=== PATIENT | male | born 1940 | race Caucasian/White ===

== ENCOUNTER 2017-01-16 10:38 | Day surgery (SDC) | payer MEDICARE ==
[~2017-01-16 10:38] MED LIST: Buffered Lidocaine 1% SYRIN* 3 ML/SYR SYRINGE INTRADERM ONE; Famotidine IV* 10 MG/ML 2 ML (20 mg) IV ONE; Famotidine IV* 10 MG/ML 2 ML (20 mg) ONE; Metoclopramide TAB* 10 MG ONE; Metoclopramide TAB* 10 MG PO ONE
[2017-01-16] MEDS ORDERED: Dexamethasone IV* 4 MG/ML 1 ML (4 MG) ONE (11:33)
[2017-01-16] MEDS ORDERED: fentaNYL* 50 MCG/ML 2 ML VIAL (100 MCG VIAL) ONE ×2 (11:33→14:48)
[2017-01-16] MEDS ORDERED: Oxymetazoline 0.05% NASAL SPR* 15 ML BTL ONE (11:33)
[2017-01-16] MEDS ORDERED: Lidocaine 4% TOPICAL* 50 ML TOP.SOLN ONE (11:33)
[2017-01-16] MEDS ORDERED: Propofol* 10 MG/ML 20 ML BTL IV PUSH ONE (11:33)
[2017-01-16] MEDS ORDERED: Ondansetron INJ* 2 MG/ML VIAL ONE (11:33)
[2017-01-16] MEDS ORDERED: Midazolam* 1 MG/ML 5 ML VIAL (5 MG) ONE (11:33)
[2017-01-16] MEDS ORDERED: Lidocaine 2% PF * 5 ML VIAL ONE (11:33)
[2017-01-16] MEDS ORDERED: KETAMINE HCL* 50 MG/ML 10 ML VIAL ONE (11:33)
[2017-01-16] MEDS ORDERED: Lidocain 1% EPI 1:100,000 * 30 ML MDV ONE (11:34)
[2017-01-16] MEDS ORDERED: EPHEDrine (Pressors)* 50 MG/ML VIAL ONE (12:32)
[2017-01-16] MEDS ORDERED: fentaNYL* 50 MCG/ML 2 ML VIAL (100 MCG VIAL) IV PRN (13:21)
[2017-01-16] MEDS ORDERED: Levalbuterol 0.63MG/3ML NEB INH PRN (13:21)
[2017-01-16] MEDS ORDERED: HYDROcodone/ACET. 7.5/325 LIQ* 15 ML UDC ONE (13:52)
[2017-01-16 15:14] VITALS: BP 162/72
--- NOTE | 2017-01-16 22:55 | OP ---
DATE OF OPERATION: 01/16/17 [facility] DATE OF : 40 SURGEON: Bartolo Mott MD ANESTHESIOLOGIST: Issa Chavez MD ANESTHESIA: General PRE-OP DIAGNOSES: Right ethmoidal, left sphenoidal sinusitis. There was ethmoidal sinusitis as well on the left side and inferior turbinate hypertrophy. POST-OP DIAGNOSES: Right ethmoidal, left sphenoidal sinusitis. There was ethmoidal sinusitis as well on the left side and inferior turbinate hypertrophy. OPERATIVE PROCEDURE: Endoscopic sinus surgery using the image-guided system. On the right, it was a right total ethmoidectomy. On the left, ethmoidectomy with sphenoidotomy and then inferior turbinate reduction using the debrider bilaterally. SPECIMEN: Cultures were taken intraoperatively at the right ethmoid with pus. ESTIMATED BLOOD LOSS: Minimal. COMPLICATIONS: None. DISPOSITION: Good. DESCRIPTION OF PROCEDURE: The patient was taken to the operating room, placed in the supine position on the operating table, general anesthesia was induced and was maintained with laryngeal mask airway anesthesia. He was first registered to the image-guided system and his nose was packed bilaterally with cottonoids impregnated with oxymetazoline and 4% lidocaine and draped for the surgery. Under endoscopic guidance, I injected the middle turbinates with 1% lidocaine with 1:100,000 epinephrine. Medialized these into the lateral wall and the anterior ethmoid bulla. I confirmed that I was in the right spot with the registered probe and suctioned and opened up into the ethmoid bulla and cleaned out both the anterior and posterior ethmoids on the right side. When I opened, there was copious pus that came out and I did send this for both for culture, C and S routine, and anaerobic. On the left, I went through the ethmoid to get to the plaque sphenoid, again found pus. Opened up the ostium of the sphenoid sinus and cleaned that out. Then, inferior turbinates reduction was performed. They were injected with 1% lidocaine with 1:100,000 epinephrine. A 15-blade was used to make an incision on the anterior inferior turbinates. The caudal elevator was used to raise the submucosal pocket elevating the mucosa off with the bone and turbinate debrider was used to debride the submucosa bilaterally. Stammberger Sinu-Foam was placed in the ostiomeatal units bilaterally. The patient tolerated this procedure well, no complications , and transferred to the recovery room in stable condition. [id number]/[facility] #: [id number] [place]
== END 2017-01-16 15:14 | disposition home or self-care (01) ==
LOC: OR 10:38
PROVIDERS: ATTEND Otolaryngology
DX: J32.2 Chronic ethmoidal sinusitis (principal); J32.3 Chronic sphenoidal sinusitis; J34.3 Hypertrophy of nasal turbinates; I10 Essential (primary) hypertension; I25.10 Atherosclerotic heart disease of native coronary artery without angina pectoris; G47.33 Obstructive sleep apnea (adult) (pediatric); Z95.5 Presence of coronary angioplasty implant and graft; Z87.891 Personal history of nicotine dependence; E11.9 Type 2 diabetes mellitus without complications
CPT/HCPCS: 87070; 87073; 87077; 87186; 87205; A9270-GY; J1100; J2250; J2405; J2704; J3010

== ENCOUNTER 2019-11-09 15:59 | Emergency (ER) | payer MEDICARE ==
[2019-11-09 16:11] VITALS: BP 182/80
[2019-11-09 16:31] LABS: Influenza A Molecular Negative (Negative); Influenza B Molecular Negative (Negative)
--- NOTE | 2019-11-09 17:33 | UC ---
Respiratory Complaint HPI - HPI Summary HPI Summary: 78 yo with hx of chronic cough x 2 years, with sudden increase in cough x 2 days , without fever. He has bilateral anterior chest discomfort from coughing. Went for evaluation at ENT, and [employer] there advised coming here to screen for influenza, which is negative. PMH includes recent GI bleed with anemia thought secondary to NSAID's, and hx of CAD with past stenting. Has used inhalrs in the past with side effects and without clear efficacy - History of Current Complaint Chief Complaint: UCRespiratory Stated Complaint: RESP COMPLAINT Time Seen by Provider: 11/09/19 17:18 Hx Obtained From: Patient, Family/Box Maker - here with his Onset/Duration: Sudden Onset, Lasting Days, Worse Since - 2 days Timing: Intermittent Episodes Severity Initially: Moderate Severity Currently: Moderate Pain Intensity: 0 Character: Cough: Nonproductive Aggravating Factors: Exertion Alleviating Factors: Nothing Associated Signs And Symptoms: Positive: Nasal Congestion. Negative: Fever, Chills - Risk Factors Pulmonary Embolism Risk Factors: Negative Cardiac Risk Factors: Negative Pseudomonas Risk Factors: Negative Tuberculosis Risk Factors: Negative - Allergies/Home Medications Allergies/Adverse Reactions: Allergies Allergy/AdvReac Type Severity Reaction Status Date / Time erythromycin base Allergy Diarrhea Verified 11/09/19 16:25 MS Erythromycin Allergy Diarrhea Verified 11/09/19 16:25 [Erythromycin] contrast dye Allergy Rash Uncoded 11/09/19 16:25 eryhtromcyin Allergy Diarrhea Uncoded 11/09/19 16:25 OXCONTIN Allergy Unknown Uncoded 11/09/19 16:25 Reaction Details OYCODONE Allergy Unknown Uncoded 11/09/19 16:25 Reaction Details SEASONAL Allergy Congestion Uncoded 11/09/19 16:25 Home Medications: Home Medications Aspirin [Aspirin Adult Low Dose] 81 mg PO DAILY 07/18/13 [History Confirmed ] Simvastatin [Zocor 40 MG (NF)] 20 mg PO QPM 07/18/13 [History Confirmed 11/09/19 ] HYDROcodone/ACETAMIN 5-325 MG* [[place]oda 5-325 TAB*] 1 tab PO Q8H PRN 04/10/16 [ History Confirmed 11/09/19] Propranolol 40 mg TAB [Inderal TAB*] 40 mg PO BID 04/10/16 [History Confirmed ] Ipratropium Br (Nf)0.03% Nasal [Ipratropium Acton] 1 spr BOTH NARES SEE INSTRUCTIONS PRN 01/09/17 [History Confirmed 11/09/19] Azelastine 0.1% Nasal (NF) [Astepro 0.1% Nasal (NF)] 1 spray BOTH NARES BID [History Confirmed 11/09/19] Cetirizine* [ZyrTEC 10 MG TAB*] 10 mg PO DAILY 10/07/19 [History Confirmed 11/09] Losartan Potassium 100 mg PO DAILY 10/07/19 [History Confirmed 11/09/19] Meclizine TAB* [Antivert 12.5 TAB*] 25 mg PO TID 10/07/19 [History Confirmed ] Melatonin 3 mg PO DAILY 10/07/19 [History Confirmed 11/09/19] Mupirocin 2% OINT* [Bactroban 2 % Oint*] 1 applic TOPICAL BID 10/07/19 [History Confirmed 11/09/19] Cholecalciferol TAB* [Vitamin D TAB*] 4,000 unit PO DAILY 11/09/19 [History Confirmed 11/09/19] Codeine Phosphate/Guaifenesin [Guaifen-Codeine 100-10 mg/5 ml] 10 ml PO QID PRN #200 ml MDD 40ml 11/09/19 [Rx] Omeprazole CAP(NF) [PriLOSEC CAP(NF)] 10 mg PO DAILY 11/09/19 [History Confirmed 11/09/19] PMH/Surg Hx/FS Hx/Imm Hx - Additional Past Medical History Additional PMH: hx of sinusitis, with past hx of orbital cellulitis Endocrine History: Dyslipidemia Cardiovascular History: Cardiac Disease, Hypertension GI/ History: Gastroesophageal Reflux, Ulcer, Gastrointestional Bleed Neurological History: Other - essential tremor - Surgical History Surgical History: Yes Surgery Procedure, Year, and Place: BLADDER SURGERY 2014, CATARACTS 2002, KIDNEY STONES REMOVED,. RETINAL SURGERY IN 2010 AND IN 2014 BOTH IN [place], RUPTURED COLON AND COLOSTOMY PLACED 2005 REVERSED 2006, TONSILS 1944?, [place]ARDIAC ST[place] [place] VERIFLEX (BARE METAL)700G CM-NORMAL OPERATING MODE-OK FOR 1.5 OR 3T, PROSTATE REMOVED 11/26/2015 - Social History Occupation: Retired Lives: With Family Alcohol Use: Occasionally Alcohol Amount: winter 1-2 drinks 3-4 x week, summer- rarely Substance Use Type: None Smoking Status (MU): Former Smoker Amount Used/How Often: smoked for 30 yrs, 1 ppd When Did the Patient Quit Smoking/Using Tobacco: quit Review of Systems All Other Systems Reviewed And Are Negative: Yes Constitutional: Positive: Fatigue Skin: Positive: Negative Eyes: Positive: Negative ENT: Positive: Negative Respiratory: Positive: Cough Cardiovascular: Positive: Chest Pain - related to coughint., Other - hx of stent Gastrointestinal: Positive: Other - recent dx of ulcer Genitourinary: Positive: Negative Motor: Positive: Negative Neurovascular: Positive: Negative Musculoskeletal: Positive: Negative Neurological/Mental Status: Positive: Negative Psychological: Positive: Negative Is Patient Immunocompromised?: No Physical Exam Triage Information Reviewed: Yes Appearance: Well-Appearing, Pain Distress - mid Vital Signs: Initial Vital Signs Temp 98.3 F 11/09/19 16:07 Pulse 67 11/09/19 16:07 Resp 18 11/09/19 16:07 BP 182/80 11/09/19 16:07 Pulse Ox 97 11/09/19 16:07 Eyes: Positive: Conjunctiva Clear ENT: Positive: Pharynx normal, TMs normal Neck: Positive: Supple, Nontender, No Lymphadenopathy Respiratory: Positive: Lungs clear, Normal breath sounds Cardiovascular: Positive: RRR, No Murmur, Pulses Normal Abdomen Description: Positive: Nontender, No Organomegaly, Soft Musculoskeletal Exam: Normal Neurological Exam: Normal Psychological Exam: Normal Skin Exam: Normal Diagnostics - Laboratory Lab Results: rapid flu negative - Radiology No standard instances Radiology Interpretation Completed By: Radiologist - Patient Name: EUGENIO MCGUIRE Medical Record#: [id number] Ordering Physician: Dana Art MD Acct.#: [id number] : 1940 Age: 78 Sex: M [facility] Exam Date: 11/09/191730 ADM Status: REG ER Order Information: CHEST PA & LAT 2 VWS Accession Number: [id number] CPT: 30881 INDICATION: Chronic cough with interval worsening in the last few days. Former tobacco use. COMPARISON: April 26, 2018 CT. TECHNIQUE: Dual energy PA and lateral views of the chest obtained. REPORT: Elevated lung volumes and both diffuse mild prominence of the interstitial markings and patchy rarefaction of interstitial markings. Small calcified granuloma at the RIGHT lung base. The lungs and pleural spaces are otherwise clear without evidence for alveolar consolidation, suspicious focal pulmonary lesions, or pleural effusions. The heart, pulmonary vasculature, and mediastinal contours are unremarkable. IMPRESSION: #. Stigmata of obstructive lung disease. No acute pulmonary or cardiac process evident. <Electronically signed by Joseph Medel MD in OV> 11/09/191750 Dictated By: Joseph Medel MD Dictated Date/ Time: 11/09/191748 Transcribed Date/Time: 11/09/191748 Copy to: CC:Dana Art MD; Eugenio Pat MD Imaging - [facility] Urgent [facility] [place] [address] [address] ph ([phone]) ph ([phone]) ph ([phone]) This report is only to be considered final once signed by the Provider(s) as displayed in the "< Electronically Signed by >" field (s). Absence of a signature indicates the report is in a draft status and still needs to be finalized. In the event this document was created by someone other than the signing Provider, the individual initiating the document will be listed in the "Entered by:" or "Dictated by:" brown. 1 of 1 Respiratory Course/Dx - Course Course Of Treatment: Discussed likely viral, he would like a codeine cough suppressant. Tessalong perles have been ineffective. Discussed follow up in ER if he has worsening shorntenss of breath, follow up with PMD in 2 days to reassess. Reviewed [facility] site, last rx for hydrocodone was one month ago; use is irregular and is used for chronic pain. - Differential Dx/Diagnosis Differential Diagnosis/HQI/PQRI: Asthma, Influenza, Lower Resp Infection Provider Diagnosis: Bronchitis Discharge ED - Sign-Out/Discharge Documenting (check all that apply): Patient Departure All imaging exams completed and their final reports reviewed: Yes - Discharge Plan Condition: Stable Disposition: HOME Prescriptions: Codeine Phosphate/Guaifenesin [Guaifen-Codeine 100-10 mg/5 ml] 10 ml PO QID PRN #200 ml MDD 40ml PRN Reason: Cough Patient Education Materials: Acute Bronchitis (ED) Referrals: Eugenio Pat MD [Primary Care Provider] - Additional Instructions: You have symptoms suggesting a viral infection, and chest xray does not show a pneumonia. You have a prescription for a codeine cough suppressant because other suppressants have not been found effective. Please do not use hydrocodone during at the same time as the suppressant. Follow up with Dr. Pat in 2 days for re-evaluation, but also ensure that you proceed to the emergency room if you have worsenng cough or shortness of breath. - Billing Disposition and Condition Condition: STABLE Disposition: Home
== END 2019-11-09 18:40 | disposition home or self-care (01) ==
LOC: UCEAST 15:59
DX: J40 Bronchitis, not specified as acute or chronic (principal); I25.10 Atherosclerotic heart disease of native coronary artery without angina pectoris; E78.5 Hyperlipidemia, unspecified; R09.81 Nasal congestion; K21.9 Gastro-esophageal reflux disease without esophagitis; Z95.5 Presence of coronary angioplasty implant and graft; Z88.1 Allergy status to other antibiotic agents; Z91.041 Radiographic dye allergy status; Z88.5 Allergy status to narcotic agent; Z91.09 Other allergy status, other than to drugs and biological substances; Z79.82 Long term (current) use of aspirin; Z79.899 Other long term (current) drug therapy; Z87.891 Personal history of nicotine dependence
CPT/HCPCS: 71046; 99212; G0463

== ENCOUNTER 2021-04-05 21:30 | Inpatient (IN) ==
[2021-04-05 23:33] LABS: ABS Eosinophils 0.4 10^3/ul (0-0.6); ABS Lymphocytes 0.4 10^3/ul (1.0-4.8); ABS Monocytes 0.9 10^3/ul (0-0.8); ABS Neutrophils 6.2 10^3/ul (1.5-7.7); Eosinophil % 5.5 %; Hematocrit 37 % (42-52); Hemoglobin 12.7 g/dL (14.0-18.0); Lymphocyte % 5.1 %; Mean Corpuscular HGB Conc 35 g/dL (31-36); Mean Corpuscular Hemoglobin 31 pg (27-31); Mean Corpuscular Volume 88 fL (80-94); Mean Platelet Volume 7.8 fL (7.4-10.4); Platelet Count 128 10^3/uL (150-450); Red Blood Count 4.14 10^6 /uL (4.18-5.48); Red Cell Distribution Width 14 % (10-15)
[2021-04-05 23:38] LABS: Urine Appearance Clear; Urine Bilirubin Negative (Negative); Urine Blood 2+ (Negative); Urine Color Yellow; Urine Glucose 1+(50 mg/dL) (Negative); Urine Ketones Negative (Negative); Urine Nitrite Negative (Negative); Urine Protein 1+(30 mg/dL) (Negative); Urine Specific Gravity 1.016 (1.002-1.030); Urine Urobilinogen Negative (Negative)
[2021-04-05 23:40] LABS: Activated Partial Thrombo Time 29.3 seconds (26.0-38.0); INR 1.16 (0.86-1.15)
[2021-04-05 23:48] LABS: ALT 210 U/L (7-52); AST 98 U/L (13-39); Albumin 4.2 g/dL (3.2-5.2); Albumin/Globulin Ratio 1.3 (1-3); Alkaline Phosphatase 153 U/L (35-149); Anion Gap 10 mmol/L (2-11); Blood Urea Nitrogen 48 mg/dL (6-24); C Reactive Protein 73.19 mg/L (<8.01); CO2 Carbon Dioxide 22 mmol/L (22-32); Calcium 9.6 mg/dL (8.6-10.3); Chloride 100 mmol/L (101-111); EGFR African American 50.2 (>60); EGFR Non-African American 41.5 (>60); Globulin 3.3 g/dL (2-4); Glucose 212 mg/dL (70-100); Potassium 4.1 mmol/L (3.5-5.0); Sodium 132 mmol/L (135-145); Total Protein 7.5 g/dL (6.4-8.9)
[2021-04-05 23:57] LABS: Troponin I 0.09 ng/mL (<0.03)
[2021-04-06 00:12] LABS: Urine Bacteria Absent (Absent); Urine Red Blood Cell 2+(6-10/hpf) (Absent); Urine White Blood Cell Absent (Absent)
[2021-04-06] MEDS: Lactated Ringers 1000 ml BAG 1,000 ML IV SCH ×2 (00:26→01:38)
[2021-04-06] MEDS ORDERED: Dextrose 50% Syringe 50 ml 25 GM/50 ML SYRINGE IV PUSH PRN (02:14)
[2021-04-06] MEDS ORDERED: HYDROcodone/ACETAMIN 5/325 mg TAB PO PRN (03:18)
[2021-04-06 04:07] LABS: TSH Ultra Thyroid Stim Horm 2.55 mcIU/mL (0.34-5.60)
[2021-04-06] MEDS: DOXYcycline 100 MG in NS 0.9% 250 ml 250 ML IVPB SCH ×2 (05:53→17:55)
[2021-04-06] MEDS ORDERED: Heparin 5000 UNITS/ML 1 mL VIAL SUBCUT SCH (06:00)
[2021-04-06 06:37] LABS: Troponin I 0.07 ng/mL (<0.03)
[2021-04-06 07:12] LABS: Hepatitis B Surface Antigen Nonreactive (Nonreactive)
[2021-04-06 07:17] LABS: Hepatitis A Ab IgM Negative (Negative)
[2021-04-06 07:18] LABS: Hepatitis B Core IgM Nonreactive (Nonreactive)
[2021-04-06 07:29] LABS: Hepatitis C Antibody Negative (Negative)
[2021-04-06] MEDS: Propranolol 80 mg TAB PO SCH ×2 (08:06→21:30)
[2021-04-06] MEDS: Aspirin EC 81 mg TAB.EC (enteric coated) PO SCH (08:06)
[2021-04-06 12:20] LABS: Influenza A Molecular Negative (Negative); Influenza B Molecular Negative (Negative)
[2021-04-06] MEDS: Enoxaparin 30 MG/0.3 ML SYR SUBCUT SCH (12:30)
[2021-04-07] MEDS: DOXYcycline 100 MG in NS 0.9% 250 ml 250 ML IVPB SCH (05:04)
[2021-04-07 06:12] LABS: ABS Eosinophils 0.5 10^3/ul (0-0.6); ABS Lymphocytes 0.8 10^3/ul (1.0-4.8); ABS Monocytes 1.1 10^3/ul (0-0.8); ABS Neutrophils 6.7 10^3/ul (1.5-7.7); Eosinophil % 5.2 %; Hematocrit 31 % (42-52); Hemoglobin 11.2 g/dL (14.0-18.0); Lymphocyte % 8.6 %; Mean Corpuscular HGB Conc 36 g/dL (31-36); Mean Corpuscular Hemoglobin 32 pg (27-31); Mean Corpuscular Volume 88 fL (80-94); Mean Platelet Volume 7.8 fL (7.4-10.4); Nucleated Red Blood Cells % 0.1; Platelet Count 122 10^3/uL (150-450); Red Blood Count 3.55 10^6 /uL (4.18-5.48); Red Cell Distribution Width 14 % (10-15); White Blood Count 9.1 10^3/uL (3.5-10.8)
[2021-04-07 06:28] LABS: Albumin 3.6 g/dL (3.2-5.2); Potassium 3.7 mmol/L (3.5-5.0); Total Bilirubin 0.8 mg/dL (0.2-1.0)
[2021-04-07 06:34] LABS: Albumin/Globulin Ratio 1.3 (1-3); EGFR African American 62.6 (>60); EGFR Non-African American 51.7 (>60); Globulin 2.7 g/dL (2-4); Total Protein 6.3 g/dL (6.4-8.9)
[2021-04-07] MEDS: Aspirin EC 81 mg TAB.EC (enteric coated) PO SCH (08:42)
[2021-04-07] MEDS: Propranolol 80 mg TAB PO SCH (08:48)
[2021-04-07] MEDS: Enoxaparin 30 MG/0.3 ML SYR SUBCUT SCH (12:45)
[2021-04-07 12:49] VITALS: BP 94/63
[2021-04-08 20:02] LABS: Anaplasma phagocytophilum Negative (Negative); B. miyamotoi PCR, B Negative (Negative); Babesia divergens/MO-1 Negative (Negative); Babesia ducani Negative (Negative); Ehrlichia chaffeensis Negative (Negative); Ehrlichia ewingii/canis Negative (Negative); Ehrlichia muris eauclairensis Negative (Negative)
[2021-04-10 17:39] LABS: CMV DNA DETECT/QT, P Undetected IU/mL (Undetected)
== END 2021-04-07 15:15 | disposition home or self-care (01) | DRG 871 ==
LOC: ED 21:30 → MED 04-06 02:09
PROVIDERS: ADMIT Hospitalist; ATTEND Internal Medicine